=== PATIENT | female | born 1935 | race African-American/Black ===

== ENCOUNTER 2019-03-01 21:23 | Emergency (ER) | payer MEDICARE, OTHER ==
[2019-03-01 22:27] LABS: Hemoglobin 9.6 g/dL (12.0-16.0); Mean Corpuscular HGB CONC 32.7 g/dL (32.0-36.0); Mean Corpuscular Hemoglobin 28.7 pg (27.0-31.0); Mean Corpuscular Volume 87.8 fL (78.0-98.0); Mean Platelet Volume 7.6 fL (7.4-10.4); Platelet Count 211 thou/uL (130-400); RBC Distribution Width 12.8 % (11.5-14.5); Red Blood Cell (RBC) Count 3.36 mill/uL (4.20-5.40); White Blood Cell (WBC) Count 7.9 thou/uL (4.8-10.8)
[2019-03-01 22:33] LABS: ALT (SGPT) 18 U/L (8-55); AST (SGOT) 18 U/L (5-34); Albumin 4.1 g/dL (3.4-4.8); Alkaline Phosphatase 97 U/L (40-150); Anion Gap 16 mmol/L (10-20); BUN (Urea Nitrogen) 29 mg/dL (9.8-20.1); Bilirubin, Total Less than 0.2 mg/dL (0.2-1.2); Calc. Creatinine Clearance 0 mL/min (70-130); Calcium 10.6 mg/dL (7.8-10.44); Carbon Dioxide 27 mmol/L (23-31); Chloride 100 mmol/L (98-107); Estimated GFR-MDRD 25; Globulin 3.7 g/dL (2.4-3.5); Glucose 124 mg/dL (83-110); Lipase 48 U/L (8-78); Potassium 4.4 mmol/L (3.5-5.1); Protein, Total 7.8 g/dL (6.0-8.3); Sodium 139 mmol/L (136-145)
[2019-03-01 22:43] LABS: Band 2 % (5-11); Eosinophils 4 % (0-10); Lymphocytes 16 % (21-51); MDiff Complete? YES; Monocytes 12 % (0-10); Neutrophil 66 % (42-75); Platelet Morphology Comment Appears Adequate; RBC Morphology Normal
[2019-03-01] MEDS ORDERED: Bisacodyl 10 MG SUPP ONE ×2 (23:03→23:05)
[2019-03-01] MEDS ORDERED: Magnesium Citrate 300 ML BOT ONE (23:03)
--- NOTE | 2019-03-01 23:08 | CT ---
CT ABDOMEN AND PELVIS WITHOUT IV CONTRAST: 03/01/19 INDICATIONS: Lower abdominal pain. No comparison. FINDINGS: The lung bases are clear. There is a fixed diaphragmatic hernia. The liver, spleen and pancreas are unremarkable. Gallbladder is mildly distended. There is suggestion of faint density dependently in the gallbladder fundus which could represent tiny stones or gravel. Adrenal glands and kidneys unremarkable. Urinary bladder contacted and not evaluated. Small bowel loops normal caliber. Appendix is not identified. Fluid and scattered stool seen in the c olon. Colonic mucosal lesions are not excluded by CT. Aorta normal caliber with calcification. Pelvic structures including uterus and adnexa unremarkable. Numerous myometrial calcifications are se en suggesting fibroids. IMPRESSION: 1. Mildly distended gallbladder with questionable density in the fundus of the gallbladder. Cons ider gallbladder ultrasound. 2. No acute intra-abdominal process. POS: OFF
== END 2019-03-01 23:15 | disposition home or self-care (01) ==
LOC: BURERS 21:23
DX: K59.00 Constipation, unspecified (principal); E11.9 Type 2 diabetes mellitus without complications; I10 Essential (primary) hypertension; J45.909 Unspecified asthma, uncomplicated
CPT/HCPCS: 74176; 80053; 82274; 83605; 83690; 85025

== ENCOUNTER 2019-03-06 15:41 | Outpatient (CLI) | payer MEDICARE ==
--- NOTE | 2019-03-06 18:32 | RAD ---
CHEST TWO VIEWS: 03/06/2019 COMPARISON: 10/13/2011 FINDINGS: The heart is normal in size, and the lungs are clear. A hiatal hernia is noted centrally, which seem s slightly larger than it was in 2012. The trachea is midline. IMPRESSION: 1. No acute thoracic findings. 2. Moderate size hiatal hernia. POS: HOME
== END 2019-03-06 15:42 | disposition home or self-care (01) ==
LOC: BURRAD 15:41
PROVIDERS: ATTEND Family Medicine
DX: R05 Cough (principal); K44.9 Diaphragmatic hernia without obstruction or gangrene
CPT/HCPCS: 71046